=== PATIENT | male | born 1985 | race Caucasian/White ===

== ENCOUNTER → 2018-01-16 | Outpatient (CLI) | payer OTHER ==
[2018-01-16 19:02] LABS: HEMATOCRIT 39.2 % (42.0-52.0); MEAN CORPUSCULAR HEMOGLOBIN 30.8 pg (27.0-33.0); MEAN CORPUSCULAR HGB CONC 35.7 g/dl (32.0-36.5); MEAN CORPUSCULAR VOLUME 86.2 fl (80.0-96.0); PLATELET COUNT, AUTOMATED 186 10^3/uL (150-450); RED BLOOD COUNT 4.55 10^6/uL (4.30-6.10); RED CELL DISTRIBUTION WIDTH 11.7 % (11.5-14.5); WHITE BLOOD COUNT 4.8 10^3/uL (4.0-10.0)
[2018-01-16 19:21] LABS: C REACTIVE PROTEIN QUANTITATIV < 0.30 MG/DL (0.00-0.30)
[2018-01-16 19:21] LABS: RHEUMATOID FACTOR QUANT < 10.0 IU/ML (<15.0)
[2018-01-16 19:58] LABS: ERYTHROCYTE SEDIMENTATION RATE 7 mm/hr (0-15)
[2018-01-18 14:15] LABS: ANTINUCLEAR ANTIBODIES DIRECT Negative (Negative)
== END ==
LOC: M WUC 17:26
DX: M79.641 Pain in right hand (principal); M54.2 Cervicalgia; M51.37 Other intervertebral disc degeneration, lumbosacral region; M41.9 Scoliosis, unspecified
CPT/HCPCS: 86140

== ENCOUNTER → 2018-06-30 | Outpatient (CLI) | payer OTHER | LOC: M LRY 17:19 | DX: S59.911A Unspecified injury of right forearm, initial encounter (principal); M54.5 Low back pain; X58.XXXA Exposure to other specified factors, initial encounter; Y92.89 Other specified places as the place of occurrence of the external cause; Y93.9 Activity, unspecified; Y99.9 Unspecified external cause status ==

== ENCOUNTER 2018-08-01 08:51 | Emergency (ER) | payer OTHER ==
[2018-08-01] MEDS: NS 1,000 ML IV (09:21)
[2018-08-01] MEDS: ONDANSETRON 4MG/2ML VIAL (J2405) IV (09:21)
[2018-08-01] MEDS: MORPHINE 4 MG/ML 1ML VIAL/SYRINGE (J2270) IV (09:22)
[2018-08-01 09:31] LABS: BASO % 0.7 % (0.0-1.0); EOS # 0.1 10^3/uL (0.0-0.50); EOS % 1.2 % (0.0-3.0); HEMATOCRIT 41.6 % (42.0-52.0); HEMOGLOBIN 14.9 g/dl (13.5-17.5); LYMPH # 1.5 10^3/uL (1.5-4.5); LYMPH % 35.6 % (24.0-44.0); MEAN CORPUSCULAR HEMOGLOBIN 31.4 pg (27.0-33.0); MEAN CORPUSCULAR HGB CONC 35.8 g/dl (32.0-36.5); MEAN CORPUSCULAR VOLUME 87.8 fl (80.0-96.0); MONO # 0.4 10^3/uL (0.0-0.8); MONO % 9.3 % (0.0-5.0); NEUTROPHILS # 2.2 10^3/uL (1.8-7.7); NEUTROPHILS % 53.2 % (36.0-66.0); PLATELET COUNT, AUTOMATED 198 10^3/uL (150-450); RED BLOOD COUNT 4.74 10^6/uL (4.30-6.10); RED CELL DISTRIBUTION WIDTH 11.9 % (11.5-14.5); WHITE BLOOD COUNT 4.1 10^3/uL (4.0-10.0)
[2018-08-01 09:38] LABS: KETONE, URINE AUTO RFX NEGATIVE (NEGATIVE); LEUKOCYTE ESTERASE UR AUTO RFX NEGATIVE (NEGATIVE); MUCUS, URINE RFX SMALL (NEGATIVE); NITRITE, URINE AUTO RFX NEGATIVE (NEGATIVE); RBC, URINE AUTO RFX 0 /HPF (0-3); SPECIFIC GRAVITY UR AUTO RFX 1.026 (1.002-1.035); SQUAM EPITHELIAL CELL UR AURFX 0 /HPF (0-6); WBC, URINE AUTO RFX 0 /HPF (0-3)
[2018-08-01] MEDS: diphenhydrAMINE INJ 50MG/ML VIAL (J1200) IV (09:38)
[2018-08-01] MEDS: methylPREDNISolone INJ 125 MG/2 ML VIAL (J2930) IV (09:38)
[2018-08-01 09:59] LABS: ALBUMIN 4.7 GM/DL (3.2-5.2); ALBUMIN/GLOBULIN RATIO 1.47 (1.00-1.93); ALKALINE PHOSPHATASE 77 U/L (45-117); ALT/SGPT 21 U/L (12-78); ANION GAP 3 MEQ/L (8-16); AST/SGOT 14 U/L (7-37); BILIRUBIN,DIRECT 0.2 MG/DL (0.0-0.2); BILIRUBIN,TOTAL 0.8 MG/DL (0.2-1.0); BLOOD UREA NITROGEN 14 MG/DL (7-18); CALCIUM LEVEL 9.1 MG/DL (8.5-10.1); CARBON DIOXIDE LEVEL 32 MEQ/L (21-32); CHLORIDE LEVEL 107 MEQ/L (98-107); CREATININE FOR GFR 0.96 MG/DL (0.70-1.30); GLOMERULAR FILTRATION RATE > 60.0 (>60); GLUCOSE, FASTING 95 MG/DL (70-100); LIPASE 227 U/L (73-393); POTASSIUM SERUM 4.2 MEQ/L (3.5-5.1); SODIUM LEVEL 142 MEQ/L (136-145); TOTAL PROTEIN 7.9 GM/DL (6.4-8.2)
[2018-08-01] MEDS ORDERED: ISOVUE-370 76% 100ML VIAL (Q9967) As Ordered (10:24)
[2018-08-01 11:09] LABS: LACTIC ACID SEPSIS PROTOCOL 1.7 MMOL/L (0.4-2.0)
[2018-08-01] MEDS: MAGNESIUM CITRATE 300 ML BTL PO (11:26)
== END 2018-08-01 11:30 | disposition home or self-care (01) ==
LOC: M ED 08:51
DX: K59.00 Constipation, unspecified (principal); Z88.8 Allergy status to other drugs, medicaments and biological substances
CPT/HCPCS: J2270

== ENCOUNTER 2019-04-03 09:21 | Emergency (ER) | payer OTHER ==
[~2019-04-03] VITALS: Ht 177.8 cm; Wt 84.1 kg
[~2019-04-03 09:21] MED LIST: MIRA3350 PO
[2019-04-03] MEDS ORDERED: TETRACAINE 0.5% OPHTH SOLN 4ML OU ONE (10:45)
[2019-04-03] MEDS ORDERED: FLUORESCEIN OPHTH 1 MG STRIP OU ONE (10:45)
[2019-04-03] MEDS ORDERED: GENT0.3O15 OD (11:57)
[2019-04-03 12:04] VITALS: BP 127/76
== END 2019-04-03 12:05 | disposition home or self-care (01) ==
LOC: M ED 09:21
DX: S05.01XA Injury of conjunctiva and corneal abrasion without foreign body, right eye, initial encounter (principal); S05.02XA Injury of conjunctiva and corneal abrasion without foreign body, left eye, initial encounter; X58.XXXA Exposure to other specified factors, initial encounter; Y92.89 Other specified places as the place of occurrence of the external cause; Z88.8 Allergy status to other drugs, medicaments and biological substances

== ENCOUNTER → 2019-06-07 | Outpatient (REF) | payer OTHER ==
[~2019-06-07] MED LIST changes: +GENT0.3O15 OD
== END ==
LOC: M LAB REF 10:53
PROVIDERS: ATTEND Nurse Practitioner Family
DX: L03.116 Cellulitis of left lower limb (principal)

== ENCOUNTER 2020-03-15 09:39 | Emergency (ER) | payer OTHER, SELFPAY ==
[~2020-03-15] VITALS: Ht 182.9 cm; Wt 85.7 kg
--- NOTE | 2020-03-15 10:38 | REP ---
RIGHT HAND, FOUR VIEWS: There is no evidence of an acute fracture, dislocation or intrinsic bone disease. IMPRESSION: No fracture or dislocation. Electronically Signed by Ross Araya MD 03/15/2020 11:16 A
[2020-03-15] MEDS ORDERED: IBUPROFEN 800 MG TAB PO ONE (11:00)
[2020-03-15 11:02] VITALS: BP 121/73
== END 2020-03-15 11:08 | disposition home or self-care (01) ==
LOC: M ED 09:39
DX: S63.91XA Sprain of unspecified part of right wrist and hand, initial encounter (principal); S60.221A Contusion of right hand, initial encounter; W01.0XXA Fall on same level from slipping, tripping and stumbling without subsequent striking against object, initial encounter; Y92.018 Other place in single-family (private) house as the place of occurrence of the external cause; Z88.8 Allergy status to other drugs, medicaments and biological substances

== ENCOUNTER 2020-08-11 15:33 | Emergency (ER) | payer OTHER ==
[~2020-08-11] VITALS: Ht 182.9 cm; Wt 88.6 kg
[2020-08-11] MEDS ORDERED: KETOROLAC TROMETHAMINE 10 MG TAB PO ONE (16:30)
--- NOTE | 2020-08-11 16:33 | REP ---
INDICATION: ladder onto foot COMPARISON: None. TECHNIQUE: Four views obtained. FINDINGS: Four views the left foot are performed. There is a subtle hairline nondisplaced fracture of the midshaft of the 2nd metatarsal. I see no other evidence of acute fracture, dislocation or intrinsic bone disease. IMPRESSION: Nondisplaced hairline fracture transversely through the mid shaft of the 2nd metatarsal. <Electronically signed by Ross Araya > 08/11/20 [id number]
[2020-08-11 16:42] VITALS: BP 133/77
== END 2020-08-11 17:04 | disposition home or self-care (01) ==
LOC: M ED 15:33
DX: S92.325A Nondisplaced fracture of second metatarsal bone, left foot, initial encounter for closed fracture (principal); W20.8XXA Other cause of strike by thrown, projected or falling object, initial encounter; Y92.89 Other specified places as the place of occurrence of the external cause; Y93.H9 Activity, other involving exterior property and land maintenance, building and construction; Y99.0 Civilian activity done for income or pay; Z88.8 Allergy status to other drugs, medicaments and biological substances

== ENCOUNTER 2020-11-07 10:21 | Emergency (ER) | payer OTHER ==
[~2020-11-07] VITALS: Ht 182.9 cm; Wt 92.0 kg
[2020-11-07] MEDS ORDERED: KETOROLAC 30 MG/ML 1ML VIAL IM ONE (10:45)
[2020-11-07] MEDS ORDERED: CYCLOBENZAPRINE 10MG TABLET PO ONE (10:45)
--- NOTE | 2020-11-07 11:27 | REP ---
INDICATION: right lower back pain. COMPARISON: 06/30/2018 TECHNIQUE: Five views FINDINGS: Five views of the lumbosacral spine show no acute fracture, dislocation or subluxation. The intervertebral disc spaces are symmetric and well maintained. There is no spondylolysis or spondylolisthesis. The pedicles are intact bilaterally and there is no destructive osseous lesion. IMPRESSION: Unremarkable lumbosacral spine series. <Electronically signed by Federico Woods > 11/07/20 1122
[2020-11-07] MEDS ORDERED: KETO10TAB PO (11:56)
[2020-11-07] MEDS ORDERED: CYCL-707 PO (11:56)
[2020-11-07 12:00] VITALS: BP 143/86
== END 2020-11-07 12:11 | disposition home or self-care (01) ==
LOC: M ED 10:21
DX: S33.5XXA Sprain of ligaments of lumbar spine, initial encounter (principal); X50.0XXA Overexertion from strenuous movement or load, initial encounter; Y92.9 Unspecified place or not applicable; Y93.9 Activity, unspecified; Y99.0 Civilian activity done for income or pay
CPT/HCPCS: 72110; 96372; 99283; J1885

== ENCOUNTER → 2020-12-16 | Outpatient (CLI) | payer OTHER ==
[~2020-12-16] MED LIST changes: +CYCL-707 PO; +KETO10TAB PO
--- NOTE | 2020-12-16 16:07 | REP ---
INDICATION: LOW BACK PAIN COMPARISON: None. TECHNIQUE: AP and frog-lateral views of the right hip FINDINGS: Increased sclerosis to the acetabular roof with subtle marginal spurring noted. Mild joint space narrowing suggested. No further arthritic changes are appreciated. No acute fracture or dislocation. No periarticular calcifications. IMPRESSION: Mild arthritic changes suggested. <Electronically signed by Hernan Lyn > 12/16/20 [id number]
== END ==
LOC: M WUC 15:52
DX: M54.5 Low back pain (principal)

== ENCOUNTER → 2021-03-07 | Outpatient (CLI) | payer OTHER | LOC: M LAB 13:23 | PROVIDERS: ATTEND Student in an Organized Health Care Education/Training Program | DX: R53.83 Other fatigue (principal) ==

== ENCOUNTER → 2021-06-13 | Outpatient (CLI) | payer OTHER ==
--- NOTE | 2021-06-13 22:37 | REPVR ---
PROCEDURE INFORMATION: Exam: MR Lumbar Spine Without Contrast Exam date and time: 06/13/2021 3:37 PM Age: 35 years old Clinical indication: Low back pain; Additional info: Lumbar radiculopathy TECHNIQUE: Imaging protocol: Multiplanar magnetic resonance images of the lumbar spine without intravenous contrast. COMPARISON: CR Spine. Lumbosacral, complete 11/07/2020 10:58 AM FINDINGS: Vertebral body heights are maintained. Multilevel mild Schmorl's node phenomena. Mild disc height loss at L5-S1. Remaining disc space heights are preserved. No abnormal marrow signal. No cord compression. No abnormal cord signal. Conus medullaris terminates at the L1 level. Paravertebral soft tissues are unremarkable. L1-L2: No significant canal or foraminal narrowing. L2-L3: No significant canal or foraminal narrowing. L3-L4: No significant canal or foraminal narrowing. L4-L5: No significant canal or foraminal narrowing. L5-S1: Left foraminal disc protrusion slightly impinging the exiting left L5 nerve root. Overall mild left foraminal narrowing. No significant canal narrowing. IMPRESSION: Left foraminal disc protrusion at L5-S1 slightly impinging the exiting left L5 nerve root. Electronically signed by: Magdi Prasad On 06/13/2021 22:36:52 PM
== END ==
LOC: M RAD 14:25
PROVIDERS: ATTEND Pain Medicine Interventional Pain Medicine
DX: M54.16 Radiculopathy, lumbar region (principal); M51.26 Other intervertebral disc displacement, lumbar region

== ENCOUNTER → 2022-01-21 | Outpatient (CLI) | payer OTHER | LOC: M PAIN 09:00 | PROVIDERS: ATTEND Nurse Practitioner Family | DX: M51.16 Intervertebral disc disorders with radiculopathy, lumbar region (principal); Z87.81 Personal history of (healed) traumatic fracture; Z79.1 Long term (current) use of non-steroidal anti-inflammatories (NSAID); Z79.899 Other long term (current) drug therapy; Z87.891 Personal history of nicotine dependence; Z88.8 Allergy status to other drugs, medicaments and biological substances ==

== ENCOUNTER → 2022-03-30 | Outpatient (CLI) | payer OTHER ==
[~2022-03-30] MED LIST changes: +CLAR10CA3 PO; +DICL20GE TP; +MULT-90 PO; +VITA500C19 PO
== END ==
LOC: M LABSMTC 11:43
PROVIDERS: ATTEND Anesthesiology
DX: Z11.52 Encounter for screening for COVID-19 (principal)

== ENCOUNTER → 2022-04-01 | Outpatient (CLI) | payer OTHER ==
[~2022-04-01] MED LIST changes: +ISOVUE-M 300 61% 15ML VIAL As Ordered ONE; +LIDOCAINE 1% SDV 30ML VIAL As Ordered ONE; +NORCO, ANEXSIA 5/325MG TABLET (HYDROcodone/ACETAMINOPHEN) As Ordered ONE; +diazePAM 5MG TABLET As Ordered ONE; +methylPREDNISolone SUSP 40MG/ML 1ML VIAL (DEPO MEDROL) As Ordered ONE
[2022-04-01 14:08] VITALS: BP 137/84
== END ==
LOC: M IRPRO 12:46
PROVIDERS: ATTEND Anesthesiology
DX: M51.16 Intervertebral disc disorders with radiculopathy, lumbar region (principal); G89.29 Other chronic pain; Z88.3 Allergy status to other anti-infective agents; Z86.59 Personal history of other mental and behavioral disorders
CPT/HCPCS: 62323; J1030; Q9967

== ENCOUNTER → 2024-12-18 | Outpatient (REF) | payer OTHER ==
[~2024-12-18] MED LIST changes: -ISOVUE-M 300 61% 15ML VIAL As Ordered ONE; -LIDOCAINE 1% SDV 30ML VIAL As Ordered ONE; -NORCO, ANEXSIA 5/325MG TABLET (HYDROcodone/ACETAMINOPHEN) As Ordered ONE; -VITA500C19 PO; +VITA500C22 PO; -diazePAM 5MG TABLET As Ordered ONE; -methylPREDNISolone SUSP 40MG/ML 1ML VIAL (DEPO MEDROL) As Ordered ONE
== END ==
LOC: M LAB REF 17:16
PROVIDERS: ATTEND Physician Assistant
DX: B34.9 Viral infection, unspecified (principal)

== ENCOUNTER 2025-02-18 19:57 | Emergency (ER) | payer OTHER, SELFPAY ==
[~2025-02-18] VITALS: Ht 182.9 cm; Wt 93.1 kg
[2025-02-18 20:23] VITALS: BP 134/82; TEMP 97.6; O2SAT 97
[2025-02-18 21:14] LABS: HEMATOCRIT 44.8 % (42.0-52.0); HEMOGLOBIN 15.5 g/dl (13.5-17.5); MEAN CORPUSCULAR HEMOGLOBIN 31.1 pg (27.0-33.0); MEAN CORPUSCULAR HGB CONC 34.6 g/dl (32.0-36.5); PLATELET COUNT, AUTOMATED 185 10^3/uL (150-450); RED BLOOD COUNT 4.98 10^6/uL (4.30-6.10); WHITE BLOOD COUNT 6.1 10^3/uL (4.0-10.0)
[2025-02-18 21:21] LABS: ETHYL ALCOHOL (ETHANOL) 0.003 % (0.000-0.010)
[2025-02-18 21:23] LABS: ALKALINE PHOSPHATASE 71 U/L (40-129); ALT/SGPT 39 U/L (7.0-40); AST/SGOT 29 U/L (<34); BILIRUBIN,DIRECT 0.3 MG/DL (<0.4); BILIRUBIN,TOTAL 0.9 MG/DL (0.3-1.2); BLOOD UREA NITROGEN 14 MG/DL (9-23); CALCIUM LEVEL 8.7 MG/DL (8.5-10.1); CARBON DIOXIDE LEVEL 31 MMOL/L (20-31); CHLORIDE LEVEL 107 MMOL/L (98-107); CREATININE FOR GFR 0.87 MG/DL (0.70-1.30); GLOMERULAR FILTRATION RATE > 90.0 (>60); GLUCOSE, FASTING 92 MG/DL (60-100); POTASSIUM SERUM 4.4 MMOL/L (3.5-5.1); SALICYLATE LEVEL < 3.0 MG/DL (<30); SODIUM LEVEL 144 MMOL/L (136-145)
[2025-02-18 21:25] LABS: THYROID STIMULATING HORMONE 1.404 uIU/ML (0.55-4.78)
[2025-02-18 21:47] LABS: AMPHETAMINES LEVEL URINE NEGATIVE (NEGATIVE); BARBITURATES URINE NEGATIVE (NEGATIVE); BENZODIAZEPINES URINE NEGATIVE (NEGATIVE); COCAINE METABOLITE URINE NEGATIVE (NEGATIVE); METHADONE URINE NEGATIVE (NEGATIVE); OPIATES URINE NEGATIVE (NEGATIVE); PHENCYCLIDINE URINE NEGATIVE (NEGATIVE)
[2025-02-18 21:48] LABS: CANNABINOIDS URINE POSITIVE (NEGATIVE)
== END 2025-02-19 01:32 | disposition home or self-care (01) ==
LOC: M ED 19:57
DX: F43.0 Acute stress reaction (principal); F43.10 Post-traumatic stress disorder, unspecified; Z88.8 Allergy status to other drugs, medicaments and biological substances; Z79.899 Other long term (current) drug therapy; Z79.810 Long term (current) use of selective estrogen receptor modulators (SERMs)

== ENCOUNTER → 2025-05-28 | Outpatient (CLI) | payer SELFPAY ==
[2025-05-28 10:29] LABS: BASO # 0.1 10^3/uL (0.0-0.2); BASO % 1.0 % (0.0-1.0); EOS # 0.2 10^3/uL (0.0-0.5); EOS % 3.3 % (0.0-3.0); LYMPH # 1.5 10^3/uL (1.5-5.0); LYMPH % 28.5 % (24.0-44.0); MONO # 0.7 10^3/uL (0.0-0.8); MONO % 14.1 % (2.0-8.0); NEUTROPHILS # 2.7 10^3/uL (1.5-8.5); NEUTROPHILS % 52.9 % (36.0-66.0); PLATELET COUNT, AUTOMATED 202 10^3/uL (150-450)
[2025-05-28 11:04] LABS: ESTIMATED AVERAGE GLUCOSE 100.0 MG/DL (60-110)
[2025-05-28 11:06] LABS: ALT/SGPT 24.0 U/L (7.0-40); AST/SGOT 22.0 U/L (<34); CALCIUM LEVEL 9.6 MG/DL (8.5-10.1); CARBON DIOXIDE LEVEL 30.0 MMOL/L (20-31); CHLORIDE LEVEL 103.0 MMOL/L (98-107); CHOLESTEROL LEVEL 133.0 MG/DL (<200); CHOLESTEROL RISK RATIO 3.21 (<5); CREATININE FOR GFR 1.14 MG/DL (0.70-1.30); GLOMERULAR FILTRATION RATE 82.9 (>60); LDL CHOLESTEROL 65.6 MG/DL (<100); NON-HDL-C 91.6 MG/DL; POTASSIUM SERUM 4.5 MMOL/L (3.5-5.1); SODIUM LEVEL 143.0 MMOL/L (136-145); TRIGLYCERIDES LEVEL 130.0 MG/DL (<150)
== END ==
LOC: M PLALAB 08:52
PROVIDERS: ATTEND Family Medicine
DX: B19.20 Unspecified viral hepatitis C without hepatic coma (principal); G47.19 Other hypersomnia; F32.A Depression, unspecified; F41.9 Anxiety disorder, unspecified

== ENCOUNTER → 2025-05-28 | Outpatient (REF) | payer SELFPAY | LOC: M SFHCPLAZ 08:24 | PROVIDERS: ATTEND Family Medicine | DX: B19.20 Unspecified viral hepatitis C without hepatic coma (principal); G47.19 Other hypersomnia; F32.A Depression, unspecified; F41.9 Anxiety disorder, unspecified; Z53.9 Procedure and treatment not carried out, unspecified reason ==

== ENCOUNTER 2025-10-10 16:19 | Emergency (ER) | payer MEDICAID, SELFPAY ==
[~2025-10-10] VITALS: Ht 182.9 cm; Wt 94.3 kg
[2025-10-10 17:11] LABS: SOFIA COVID ANTIGEN POSITIVE (NEGATIVE)
[2025-10-10 18:11] VITALS: BP 134/82; TEMP 97.3; O2SAT 98
== END 2025-10-10 18:12 | disposition home or self-care (01) ==
LOC: M ED 16:19
DX: U07.1 COVID-19 (principal); F41.9 Anxiety disorder, unspecified; F32.A Depression, unspecified; Z88.8 Allergy status to other drugs, medicaments and biological substances; Z79.810 Long term (current) use of selective estrogen receptor modulators (SERMs)